=== PATIENT | female | born 1990 | race American Indian/Alaskan Native ===

== ENCOUNTER 2018-05-30 00:26 | Emergency (ER) | payer SELFPAY ==
[2018-05-30 00:45] VITALS: BP 135/81
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
[2018-05-30 03:11] LABS: Eosinophils # (Auto) 0.1 K/mm3 (0.0-0.4); Eosinophils % (Auto) 1.6 % (0.0-4.3); Monocytes # (Auto) 0.5 K/mm3 (0.0-0.8); Monocytes % (Auto) 10.2 % (0.0-7.3)
[2018-05-30 03:17] LABS: BUN/Creatinine Ratio 8; Blood Urea Nitrogen 5 mg/dL (7-17); Calcium 9.2 mg/dL (8.4-10.2); Hemolysis Index 1
[2018-05-30 03:41] LABS: Creatine Kinase MB < 1.0 ng/mL (0.0-4.0)
[2018-05-30 03:43] LABS: Hematocrit 32.5 % (30.3-42.9); Hemoglobin 10.1 gm/dl (10.1-14.3); Mean Corpuscular HGB Conc 31 % (30-34); Mean Corpuscular Volume 67 fl (79-97); Mean Platelet Volume 9.1 fl (6-12); Platelet Count 333 K/mm3 (140-440); Red Blood Count 4.83 M/mm3 (3.65-5.03); Red Cell Distribution Width 21.2 % (13.2-15.2)
[2018-05-30 03:44] LABS: Basophils % (Auto) 0.7 % (0.0-1.8); Lymphocytes # (Auto) 1.6 K/mm3 (1.2-5.4); Lymphocytes % (Auto) 29.6 % (13.4-35.0)
[2018-05-30 03:46] LABS: Free T4 (Free Thyroxine) 1.11 ng/dL (0.76-1.46)
--- NOTE | 2018-05-30 10:15 | XRay Report ---
FINAL REPORT EXAM: XR CHEST ROUTINE 2V HISTORY: palpitations TECHNIQUE: Frontal and lateral views of the chest. PRIORS: None currently available. FINDINGS: Cardiac silhouette is within normal limits. There is no effusion. There is no pneumothorax. There is no consolidation. There are no suspicious osseous lesions. Scoliosis. IMPRESSION: No acute cardiopulmonary findings.
== END 2018-05-30 04:43 | disposition home or self-care (01) ==
LOC: ED 00:26
DX: R00.2 Palpitations (principal)
CPT/HCPCS: 36415; 71046; 80048; 82550; 82553; 83735; 84439; 84443; 84484; 84703; 85025; 85379; 93005; 93010